=== PATIENT | female | born 1955 | race Caucasian/White ===

== ENCOUNTER → 2018-05-23 | Outpatient (CLI) | payer MEDICARE, BC, OTHER ==
[~2018-05-23] MED LIST: CLOP75TA57; LEVOTHYROID; OMEP40CA5; ROPI0.25; lisinipril
--- NOTE | 2018-05-23 14:39 | RAD ---
PROCEDURE: CHEST PA LATERAL CLINICAL INDICATION: rheumatoid arthritis COMPARISON: None FINDINGS: No pneumothorax identified. Cardiac and mediastinal contours unremarkable. No pulmonary consolidation or acute airspace disease. No acute osseous abnormalities identified. IMPRESSION: No pulmonary consolidation or acute airspace disease. Electronically signed by: Don Herrmann DO (05/23/2018 2:34 PM) [id number]
== END | disposition home or self-care (01) ==
LOC: RAD 11:04
PROVIDERS: ATTEND Internal Medicine Critical Care Medicine
DX: M06.9 Rheumatoid arthritis, unspecified (principal); R05 Cough
CPT/HCPCS: 71046

== ENCOUNTER → 2020-01-11 | Outpatient (CLI) | payer MEDICARE, BC, OTHER ==
[~2020-01-11] MED LIST changes: +OMEP40CA45; -OMEP40CA5
--- NOTE | 2020-01-11 16:34 | RAD ---
Chest, PA and Lateral: Technique: PA and lateral views of the chest were obtained. History: Shortness of breath. Comparison: 05/23/2018. Findings: The cardiomediastinal silhouette grossly appears unremarkable. Patchy airspace opacities identified in the right midlung zone and right lower lobe lung. IMPRESSION: Patchy airspace opacities identified in the right midlung zone and right lower lobe lung probably infiltrates. Follow-up to resolution. Electronically signed by: Maurice Partida MD (01/11/2020 4:31 PM) [id number]
== END | disposition home or self-care (01) ==
LOC: RAD 14:49
PROVIDERS: ATTEND Internal Medicine Cardiovascular Disease
DX: I49.3 Ventricular premature depolarization (principal); E78.2 Mixed hyperlipidemia; R06.02 Shortness of breath
CPT/HCPCS: 36415; 71046; 83880

== ENCOUNTER → 2020-03-06 | Outpatient (CLI) | payer MEDICARE, BC, OTHER ==
--- NOTE | 2020-03-06 16:06 | RAD ---
EXAM: Chest, 2 views. HISTORY: Chest pain. COMPARISON: 01/11/2020 FINDINGS: 2 views of the chest are obtained. There is stable suspected interstitial infiltrate within the right upper lobe. There is no consolidation, pleural effusion or pneumothorax. The heart is normal in size. IMPRESSION: Suspected right upper lobe interstitial infiltrate. Electronically signed by: Valentina Mathews MD (03/06/2020 4:03 PM) [id number]
== END ==
LOC: DXRAD 15:10
PROVIDERS: ATTEND Family Medicine
DX: R06.02 Shortness of breath (principal)
CPT/HCPCS: 71046